=== PATIENT | female | born 1955 | race Caucasian/White ===

== ENCOUNTER 2016-08-25 17:19 | Observation (INO) | payer BC ==
[2016-08-25 17:35] VITALS: RESP 18
[2016-08-25] MEDS ORDERED: HEPARIN SODIUM,PORCINE/D5W PMX 25,000 UNIT in DEXTROSE/WATER 1 500ML.BAG IV STA (17:59)
[2016-08-25] MEDS ORDERED: ASPIRIN 81 MG CHEW PO STA (17:59)
[2016-08-25] MEDS ORDERED: HEPARIN SODIUM,PORCINE 5,000 UNIT/ML 1 ML VIAL IV STA (17:59)
[2016-08-25] MEDS ORDERED: NITROGLYCERIN OINT 1 INCH/GM PACKET TOPICAL STA (17:59)
[2016-08-25 18:26] LABS: Basophils % (A) 0 %; Eosinophils # (A) 0.1 k/uL (0-0.7); Eosinophils % (A) 1 %; HCT 41.6 % (34.0-46.0); HDW 2.48; Luc # (Auto) 0.24; Luc % (Auto) 3; Lymphocytes # (A) 2.8 k/uL (1.0-4.8); Lymphocytes % (A) 39 %; MCH 31.9 pg (25.0-35.0); MCHC 33.7 g/dL (31.0-37.0); MCV 94.6 fL (80.0-100.0); Mean Platelet Volume 6.8; Monocytes # (A) 0.4 k/uL (0-1.0); Monocytes % (A) 5 %; Neutrophils # (A) 3.6 k/uL (1.3-7.7); Neutrophils % (A) 51 %; RDW 12.7 % (11.5-15.5); WBC 7.1 k/uL (3.8-10.6); WBC (Perox) 7.11
--- NOTE | 2016-08-25 18:34 | ED ---
Chest Pain HPI - General Chief Complaint: Chest Pain Stated Complaint: SOB Time Seen by Provider: 08/25/16 17:52 Source: patient, RN/MD, RN notes reviewed Mode of arrival: ambulatory Limitations: no limitations - History of Present Illness Initial Comments: This is a 61-year-old female with a history of an NE in 2003 with a cardiac stent who was sent over by Dr. Bautista for evaluation. She had the onset 5 days ago shortness of breath and left-sided chest pain left arm pain. The symptoms are very consistent with angina. She currently states she has about 10/10 with left shoulder pain but it gets worse with movement. This is different than her other pain. MD Complaint: chest pain - Related Data Home Medications Medication Instructions Recorded Confirmed Aspirin [Adult Low Dose Aspirin EC] 81 mg PO DAILY 08/25/16 08/25/16 Atorvastatin [Lipitor] 20 mg PO HS 08/25/16 08/25/16 Glucosamine Sulfate 500 mg PO DAILY 08/25/16 08/25/16 Hydrochlorothiazide [Hydrodiuril] 25 mg PO DAILY 08/25/16 08/25/16 Ibuprofen [Motrin] 400 mg PO HS PRN 08/25/16 08/25/16 Levothyroxine Sodium [Synthroid] 112 mcg PO DAILY 08/25/16 08/25/16 Metoprolol Succinate [Toprol XL] 50 mg PO HS 08/25/16 08/25/16 Allergies Allergy/AdvReac Type Severity Reaction Status Date / Time Penicillins Allergy Rash/Hives Verified 08/25/16 19:09 Review of Systems ROS Statement: Those systems with pertinent positive or pertinent negative responses have been documented in the HPI. ROS Other: All systems not noted in ROS Statement are negative. EKG Findings - EKG Results: EKG: interpreted by CAMRYN, sinus rhythm (Sinus rhythm rate 77 appear of 01 90 QRS duration 96 daily since QTC of 380/4:30 moderate voltage criteria for LVH no acute ST-T wave changes.) Past Medical History Past Medical History: Cancer, Chest Pain / Angina, Hyperlipidemia, Hypertension , Myocardial Infarction ([place]), Thyroid Disorder History of Any Multi-Drug Resistant Organisms: None Reported Past Surgical History: Back Surgery, Cholecystectomy, Heart Catheterization With Stent, Hernia Repair, Hysterectomy Past Psychological History: No Psychological Hx Reported Smoking Status: Former smoker Past Alcohol Use History: Occasional Past Drug Use History: None Reported General Exam - General Exam Comments Initial Comments: This is a well up well-nourished awake alert oriented 3 female Limitations: no limitations General appearance: alert, in no apparent distress Head exam: Present: atraumatic, normocephalic, normal inspection Eye exam: Present: normal appearance, PERRL, EOMI. Absent: scleral icterus, conjunctival injection, periorbital swelling ENT exam: Present: normal exam, mucous membranes moist Neck exam: Present: normal inspection. Absent: tenderness, meningismus, lymphadenopathy Respiratory exam: Present: normal lung sounds bilaterally. Absent: respiratory distress, wheezes, rales, rhonchi, stridor Cardiovascular Exam: Present: regular rate, normal rhythm, normal heart sounds. Absent: systolic murmur, diastolic murmur, rubs, gallop, clicks GI/Abdominal exam: Present: soft, normal bowel sounds. Absent: distended, tenderness, guarding, rebound, rigid Extremities exam: Present: normal inspection, full ROM, normal capillary refill. Absent: tenderness, pedal edema, joint swelling, calf tenderness Back exam: Present: normal inspection Neurological exam: Present: alert, oriented X3, CN II-XII intact Psychiatric exam: Present: normal affect, normal mood Skin exam: Present: warm, dry, intact, normal color. Absent: rash Course Vital Signs 08/25/16 08/25/16 17:29 19:14 Temperature 98.7 F Pulse Rate 76 79 Respiratory 18 18 Rate Blood Pressure 139/68 164/85 O2 Sat by Pulse 97 99 Oximetry Chest Pain MDM - MDM Patient is feeling somewhat improved I did discuss the findings with her the x- rays and her acute findings I had discussed the case previously with Dr. Bautista and later with Dr. Owusu patient will be admitted for inpatient evaluation and cardiac cath in the a.m. The initial cardiac enzymes are negative for acute findings Disposition Clinical Impression: Unstable angina pectoris, Chest pain Disposition: ADMITTED IP TO THIS HOSP Condition: Stable
[2016-08-25 18:37] LABS: ALT 33 U/L (9-52); AST 22 U/L (14-36); Alkaline Phosphatase 87 U/L (38-126); Anion Gap 10 mmol/L; Blood Urea Nitrogen 14 mg/dL (7-17); Calcium 9.6 mg/dL (8.4-10.2); Carbon Dioxide 27 mmol/L (22-30); Chloride 105 mmol/L (98-107); Glucose 84 mg/dL (74-99); Magnesium 1.9 mg/dL (1.6-2.3); Non-African American GFR(MDRD) >60 (>60 ml/min/1.73 sqM); Potassium 4.1 mmol/L (3.5-5.1); Sodium 142 mmol/L (137-145); Total Bilirubin 0.6 mg/dL (0.2-1.3); Total Protein 7.1 g/dL (6.3-8.2)
--- NOTE | 2016-08-25 18:56 | XR ---
EXAMINATION TYPE: XR chest 2V DATE OF EXAM: 08/25/2016 6:33 PM COMPARISON: NONE HISTORY: Chest pain TECHNIQUE: Frontal and lateral views of the chest are obtained. FINDINGS: There is no heart failure nor confluent pneumonic infiltrate. There are no hilar masses. T here are chest leads. Costophrenic angles are clear. Bony thorax appears intact. IMPRESSION: No active cardiopulmonary disease.
[2016-08-25 18:58] LABS: Partial Thromboplastin Time 22.3 sec (22.0-30.0); Prothrombin Time 10.3 sec (9.0-12.0)
[2016-08-25 18:59] LABS: Creatine Kinase 55 U/L (30-135)
[2016-08-25 19:11] LABS: Creatine Kinase MB 1.7 ng/mL (0.0-2.4); Troponin I <0.012 ng/mL (0.000-0.034)
[2016-08-25] MEDS ORDERED: NITROGLYCERIN SL TABS 0.4 MG TAB SUBLINGUAL PRN ×2 (20:05→20:36)
[2016-08-25] MEDS ORDERED: ATORVASTATIN 80 MG TAB PO STA (20:36)
[2016-08-25] MEDS ORDERED: SODIUM CHLORIDE 0.9% 1,000 ML in EMPTY BAG 1 BAG IV ONE (20:36)
[2016-08-25] MEDS ORDERED: ALPRAZolam 0.25 MG TAB PO PRN (20:36)
[2016-08-25] MEDS ORDERED: ASPIRIN 325 MG TAB PO STA (20:36)
[2016-08-25] MEDS ORDERED: ALPRAZolam 0.5 MG TAB PO PRN (20:36)
[2016-08-25] MEDS ORDERED: METOPROLOL SUCCINATE (ER) 50 MG TAB.ER.24H PO SCH (21:00)
[2016-08-26 01:49] VITALS: BMI 38.9
[2016-08-26 02:19] LABS: Creatine Kinase 47 U/L (30-135)
[2016-08-26 02:32] LABS: Creatine Kinase MB 1.4 ng/mL (0.0-2.4); Troponin I <0.012 ng/mL (0.000-0.034)
[2016-08-26] MEDS: NITROGLYCERIN OINT 1 INCH/GM PACKET TOPICAL SCH ×2 (05:25→20:18)
[2016-08-26] MEDS ORDERED: ATORVASTATIN 80 MG TAB PO STA (05:28)
[2016-08-26] MEDS ORDERED: LEVOTHYROXINE 112 MCG TAB PO SCH (06:30)
[2016-08-26] MEDS ORDERED: HEPARIN SODIUM 1,000 UNIT/ML VIAL ONE ×2 (06:36→06:37)
[2016-08-26] MEDS ORDERED: fentaNYL (PF) 50 MCG/ML 2 ML AMP ONE (06:36)
[2016-08-26] MEDS ORDERED: diphenhydrAMINE 50 MG/ML 1 ML VIAL ONE (06:36)
[2016-08-26] MEDS ORDERED: VERAPAMIL 2.5 MG/ML 2 ML AMP ONE (06:37)
[2016-08-26] MEDS ORDERED: fentaNYL (PF) 50 MCG/ML 2 ML AMP IV ONE (06:42)
[2016-08-26] MEDS ORDERED: diphenhydrAMINE 50 MG/ML 1 ML VIAL IVP ONE (06:42)
[2016-08-26] MEDS ORDERED: LIDOCAINE 2% INJ 20 MG/ML SQ ONE (06:43)
[2016-08-26] MEDS ORDERED: VERAPAMIL SYRINGE (5 MG/10 ML) INTRAARTER ONE (06:44)
[2016-08-26] MEDS ORDERED: MIDAZOLAM 2 MG/2 ML VIAL ONE (06:46)
[2016-08-26] MEDS ORDERED: SODIUM CHLORIDE 0.9% 1,000 ML IV ONE (06:50)
[2016-08-26] MEDS ORDERED: HEPARIN SODIUM 1,000 UNIT/ML VIAL IV ONE (06:53)
[2016-08-26] MEDS ORDERED: IOHEXOL 350 MG/ML 100 ML BOTTLE INJ ONE (06:56)
[2016-08-26] MEDS ORDERED: RX INFO: IV CONTRAST WAS GIVEN 1 EACH MISC MISCELLANE PRN (07:10)
[2016-08-26] MEDS ORDERED: SODIUM CHLORIDE 0.9% 1,000 ML IV SCH (07:15)
[2016-08-26] MEDS ORDERED: HYDROCHLOROTHIAZIDE 25 MG TAB PO SCH (09:00)
[2016-08-26] MEDS ORDERED: ASPIRIN 325 MG TAB PO SCH (09:00)
[2016-08-26 09:04] LABS: Creatine Kinase 44 U/L (30-135)
[2016-08-26 09:14] LABS: Cholesterol 126 mg/dL (<200); HDL Cholesterol 67 mg/dL (40-60); Triglycerides 74 mg/dL (<150)
[2016-08-26 09:17] LABS: Creatine Kinase MB 1.2 ng/mL (0.0-2.4); Troponin I <0.012 ng/mL (0.000-0.034)
--- NOTE | 2016-08-26 11:07 | CC ---
DATE OF SERVICE: Mrs. Alan is a 61-year-old female with known history of coronary artery disease, hypertension, hyperlipidemia, who presented with symptoms of chest discomfort, exertional in pattern, associated with dyspnea on exertion, reminding her of the symptom she had in 2003 prior to her myocardial infarction. In view of that, recommendation was made a cardiac catheterization. The procedure as well as the risks and complications were discussed with the patient, who is in full understanding and agreement. PROCEDURE: Patient was brought to the [facility] in a fasting, semi-sedated state after introducing fentanyl and Benadryl and achieving moderate conscious sedated state. Using Xylocaine anesthesia and Seldinger technique, a 6 Somali sheath was introduced in the right radial artery. Selective right and left angiography using 5 Somali 3-1/2 Bend right Kofi catheter, multiple views of the coronary artery including radha-axial views were obtained. Following that, a 5 Somali tight pigtail catheter was introduced into the left ventricle and a 30 degree ROSS view of the left ventricle was obtained. Following that, catheter and sheaths were removed. Hemostasis was obtained with deployment of a TR band. There was immediate complication. Patient is returned to her room in stable condition. The patient received 5000 units of intravenous heparin as well as intra-arterial verapamil. FINDINGS: LEFT MAIN: This is a large-size vessel bifurcating into the left circumflex, left anterior descending artery, left main coronary artery without any obstructive disease. LEFT ANTERIOR DESCENDING ARTERY: This is a large-size vessel, giving rise to a proximal diagonal branch. The left anterior descending artery as well as its branches have no evidence of obstructive lung disease. LEFT CIRCUMFLEX: This is a nondominant vessel, giving rise to 2 to 3 obtuse marginal branch. The first 2 are large in caliber. The stented segment in the mid-left circumflex is patent, has a 20% in-stent restenosis. The rest of the vessel has no high-grade stenosis. RIGHT CORONARY ARTERY: This is a large dominant vessel, bifurcating distally to a PDA and posterolateral segment. The right coronary artery in mid segment has a 20% plaque. The rest of the vessel has no high-grade stenosis. LEFT VENTRICULOGRAM: Left ventriculogram was performed in 30 degree ROSS view and revealed normal left ventricular size and systolic function. Ejection fraction 60%. There was no significant mitral regurgitation. HEMODYNAMICS: There was no gradient across the aortic valve. The left ventricular end-diastolic pressure was 14 mmHg. CONCLUSION: 1. Mild coronary artery disease involving the left circumflex and the right coronary artery with no evidence of in-stent restenosis. 2. Normal left ventricular size and systolic function. RECOMMENDATION: In view of finding anatomy, I recommend continued medical therapy with aggressive risk modifications being initiated. Those findings and recommendations were discussed with the patient and her family. Duration of the procedure 19 minutes.
--- NOTE | 2016-08-26 11:10 | LTR ---
August 26, 2016 RE: Marisol Alan Dear Dr. Weathers; I had the pleasure to perform cardiac catheterization on Mrs. Alan at [facility] on August 26, 2016 and a full copy of the procedure note will be forwarded to you. In brief, she was found to have mild obstructive disease with no evidence of high-grade stenosis and no significant in-stent restenosis and based on this finding, I have recommended continue medical therapy with aggressive risk modifications being initiated. Thank you again for allowing me to participate in this patient's care. Please feel free to call for any questions. Sincerely yours, ORI MASCORRO MD
[2016-08-26 12:18] VITALS: TEMP 97.9
[2016-08-26 12:47] VITALS: BP 139/63; PULSE 79
--- NOTE | 2016-08-26 15:40 | P.HPIM ---
History of Present Illness H&P Date: 08/25/16 Chief Complaint: Chest pain and angina, CAD, hypertension, hyperlipidemia, hypothyroidism 61-year-old female one of Dr. Callahan's patient with past medical history of CAD post [place] and angioplasty with stent back in 2003, history of hypertension, hyperlipidemia and hypothyroidism who had mild hyperglycemia apparently developed to have for the last 5 days recurrent chest pain with left- sided arm numbness along with increased shortness of breath with minimum exertion associated with mild nausea mild lightheadedness with no syncopal episode. Patient was in to see Dr. Bautista with above symptoms ended up being referred to demurs department and hospitalized after started on heparin drip for unstable angina will be going for heart catheter in the morning. Review of Systems Constitutional: Reports fatigue, Reports malaise, Reports poor appetite, Reports weakness, Denies as per HPI, Denies anorexia, Denies chills, Denies chronic headaches, Denies chronic pain, Denies daytime sleepiness, Denies fever , Denies lethargy, Denies night sweats, Denies sweats, Denies weight gain, Denies weight loss Eyes: bilateral as per HPI Ears: bilateral: decreased hearing Ears, nose, mouth and throat: Reports ant. neck pain, Reports nasal congestion, Reports sinus pain, Reports sinus pressure, Denies as per HPI, Denies bleeding gums, Denies dental pain, Denies dysphagia, Denies epistaxis, Denies headache, Denies hoarseness, Denies mouth pain, Denies nasal discharge, Denies neck fullness/pressure, Denies neck lump, Denies nose pain, Denies odynophagia, Denies post-nasal drip, Denies swelling in mouth, Denies swelling in throat, Denies sore throat, Denies vertigo, Denies voice changes Cardiovascular: Reports chest pain, Reports claudication, Reports decreased exercise tolerance, Reports dyspnea on exertion, Reports edema, Reports high blood pressure, Reports irregular heart beat, Reports lightheadedness, Reports palpitations, Reports paroxysmal nocturnal dyspnea, Reports rapid heart beat, Reports shortness of breath, Denies as per HPI, Denies leg edema, Denies orthopnea, Denies phlebitis, Denies syncope Respiratory: Reports congestion, Reports cough, Reports dyspnea, Denies as per HPI, Denies cough with sputum, Denies excessive sputum, Denies hemoptysis, Denies home oxygen, Denies pain, Denies pain on inspiration, Denies pleurisy, Denies respiratory infections, Denies sleep apnea, Denies snoring, Denies wheezing Gastrointestinal: Reports abdominal pain, Reports bloating, Reports dyspepsia, Reports indigestion, Reports nausea, Denies as per HPI, Denies belching, Denies BRBPR, Denies change in bowel habits, Denies coffee ground emesis, Denies constipation, Denies diarrhea, Denies early satiety, Denies excessive gas, Denies heartburn, Denies hematemesis, Denies hematochezia, Denies jaundice, Denies lactose intolerance, Denies loss of appetite, Denies melena, Denies vomiting Genitourinary: Denies as per HPI, Denies abnormal vaginal bleeding, Denies decreased libido, Denies difficulty conceiving, Denies difficulty voiding, Denies dysmenorrhea, Denies dyspareunia, Denies dysuria, Denies flank pain, Denies genital sores, Denies hematuria, Denies hot flashes, Denies incomplete emptying, Denies kidney stones, Denies menorrhagia, Denies mixed incontinence, Denies nocturia, Denies pelvic pain, Denies post void dribbling, Denies , Denies prolapse symptoms, Denies stress incontinence, Denies urge incontinence , Denies urgency, Denies urinary frequency, Denies vaginal discharge, Denies vaginal dryness, Denies vaginal itching, Denies vaginal odor Musculoskeletal: Reports muscle cramps, Denies as per HPI, Denies arm numbness/ tingling, Denies atrophy, Denies fractures, Denies frequent falls, Denies gait dysfunction, Denies hot joints, Denies leg numbness/tingling, Denies limitation of motion, Denies loss of height, Denies low back pain, Denies morning stiffness , Denies muscle weakness, Denies myalgias, Denies neck pain, Denies neck stiffness, Denies prior amputations, Denies redness of joints, Denies shooting arm pain, Denies shooting leg pain Integumentary: Reports rash, Reports sores, Denies as per HPI, Denies acne, Denies boils, Denies brittle nails, Denies change in hair/nails, Denies color changes, Denies darkening of skin, Denies depigmentation, Denies dryness, Denies foot/leg ulcers, Denies growths, Denies hirsutism, Denies lesions, Denies onychomycosis, Denies pruritus, Denies striae, Denies unusual bruising, Denies wounds Neurological: Denies as per HPI, Denies aphasia, Denies ataxia, Denies balance difficulties, Denies burning pain, Denies change in mentation, Denies change in smell/taste, Denies change in speech, Denies confusion, Denies convulsions, Denies double vision, Denies gait dysfunction, Denies head injury, Denies headaches, Denies hearing difficulties, Denies lack of coordination, Denies loss of vision, Denies memory loss, Denies migraines, Denies motor disturbance, Denies numbness, Denies paralysis, Denies paresthesias, Denies seizures, Denies sensory deficit, Denies spasticity, Denies syncope, Denies tic, Denies tingling , Denies transient paralysis, Denies tremors, Denies vertigo, Denies weakness, Denies visual changes Psychiatric: Reports anhedonia, Denies as per HPI, Denies anxiety, Denies anxiety attacks, Denies change in appetite, Denies change in libido, Denies change in sleep habits, Denies confusion, Denies depression, Denies difficulty concentrating, Denies disorientation, Denies hallucinations, Denies hopelessness , Denies hypersomnia, Denies insomnia, Denies irritability, Denies memory loss, Denies mood swings, Denies paranoia, Denies sadness/tearfulness, Denies sleep disturbances, Denies suicidal ideation Endocrine: Reports fatigue, Denies as per HPI, Denies cold intolerance, Denies deepening of the voice, Denies excessive sweating, Denies excessive thirst, Denies flushing, Denies heat intolerance, Denies high blood sugars, Denies increase in ring/shoe/hat size, Denies low blood sugars, Denies nocturia, Denies palpitations, Denies polydipsia, Denies polyphagia, Denies polyuria, Denies proptosis, Denies recent glucocorticoid use, Denies thyroid mass, Denies weight change Hematologic/Lymphatic: Reports easy bruising, Denies as per HPI, Denies easy bleeding, Denies lymphadenopathy, Denies lymphedema, Denies thrombophilia Allergic/Immunologic: Reports allergic rhinitis, Denies as per HPI, Denies anaphylaxis, Denies angioedema, Denies gluten intolerance, Denies persistent infections, Denies seasonal allergies, Denies urticaria, Denies wheezing Past Medical History Past Medical History: Cancer, Chest Pain / Angina, Hyperlipidemia, Hypertension , Myocardial Infarction ([place]), Thyroid Disorder Additional Past Medical History / Comment(s): renal stones Last Myocardial Infarction Date:: 2003 History of Any Multi-Drug Resistant Organisms: None Reported Past Surgical History: Back Surgery, Cholecystectomy, Heart Catheterization With Stent, Hernia Repair, Hysterectomy, Tonsillectomy Past Anesthesia/Blood Transfusion Reactions: No Reported Reaction Date of Last Stent Placement:: 2003 Past Psychological History: No Psychological Hx Reported Smoking Status: Former smoker Past Alcohol Use History: Occasional Past Drug Use History: None Reported Medications and Allergies Home Medications Medication Instructions Recorded Confirmed Type Aspirin [Adult Low Dose Aspirin EC] 81 mg PO DAILY 08/25/16 08/25/16 History Atorvastatin [Lipitor] 20 mg PO HS 08/25/16 08/25/16 History Glucosamine Sulfate 500 mg PO DAILY 08/25/16 08/25/16 History Hydrochlorothiazide [Hydrodiuril] 25 mg PO DAILY 08/25/16 08/25/16 History Ibuprofen [Motrin] 400 mg PO HS PRN 08/25/16 08/25/16 History Levothyroxine Sodium [Synthroid] 112 mcg PO DAILY 08/25/16 08/25/16 History Metoprolol Succinate [Toprol XL] 50 mg PO HS 08/25/16 08/25/16 History Allergies Allergy/AdvReac Type Severity Reaction Status Date / Time Penicillins Allergy Rash/Hives Verified 08/25/16 19:09 Physical Exam Vitals: Vital Signs Temp Pulse Pulse Pulse Pulse Resp BP 08/26/16 12:46 79 08/26/16 12:00 97.9 F 74 18 08/26/16 10:45 83 08/26/16 09:45 74 08/26/16 09:15 78 08/26/16 08:45 77 08/26/16 08:00 78 08/26/16 07:45 75 08/26/16 07:30 98.2 F 74 08/26/16 03:30 18 08/26/16 03:00 71 18 08/26/16 01:54 98.2 F 71 18 08/26/16 00:41 96.9 F L 82 18 136/60 08/26/16 00:33 96.9 F L 82 18 136/60 08/25/16 21:43 98.1 F 85 18 168/78 08/25/16 20:09 86 18 176/77 BP BP Pulse Ox 08/26/16 12:46 139/63 95 08/26/16 12:00 128/57 96 08/26/16 10:45 132/67 95 08/26/16 09:45 140/67 95 08/26/16 09:15 135/61 93 L 08/26/16 08:45 142/64 94 L 08/26/16 08:00 138/65 93 L 08/26/16 07:45 139/65 92 L 08/26/16 07:30 140/64 94 L 08/26/16 03:30 08/26/16 03:00 08/26/16 01:54 142/61 96 08/26/16 00:41 99 08/26/16 00:33 99 08/25/16 21:43 95 08/25/16 20:09 98 Intake and Output 08/26/16 08/26/16 08/26/16 06:59 14:59 22:59 Intake Total 150 240 Balance 150 240 Intake: IV 150 Oral 240 Other: # Voids 1 1 - Constitutional General appearance: no average body habitus, cooperative, no disheveled, no mild distress, no morbidly obese, no acute distress, no obese, no severe distress, no thin - EENT Eyes: no abnormal pupil, no anicteric sclerae, no disc margins sharp, no edentulous, no EOMI, no PERRLA, no fundus normal, no photophobia, no dentition normal, no poor dentition, no ptosis, no scleral icterus, normal appearance ENT: no hard of hearing, no hearing grossly normal, no NA/AT, normal oropharynx , no other, no thrush, no tonsillar exudates, no tonsillar swelling Ears: bilateral: normal - Neck Neck: no lymphadenopathy, normal ROM, no other, no rigidity, no stridor, no thyromegaly Carotids: bilateral: upstroke normal Thyroid: bilateral: normal size - Respiratory Respiratory: bilateral: CTA, diminished - Cardiovascular Rhythm: regular Heart sounds: normal: S1, S2 Abnormal Heart Sounds: systolic murmur, S3 Gallop - Gastrointestinal General gastrointestinal: no absent bowel sounds, no decreased bowel sounds, no distended, no hepatomegaly, no hyperactive bowel sounds, no normal bowel sounds , no organomegaly, no rigid, no scaphoid, soft, no splenomegaly, no tenderness, no umbilical hernia, no ventral hernia - Integumentary Integumentary: no calor, no cellulitis, no cyanotic, no decreased turgor, no flushed, no jaundiced, normal, no normal turgor, pale, no rash, no ulcer - Neurologic Neurologic: CNII-XII intact - Musculoskeletal Musculoskeletal: gait normal, generalized weakness, strength equal bilaterally, no right sided weakness, no left sided weakness - Psychiatric Psychiatric: A&O x's 3, appropriate affect, no intact judgment & insight Results CBC & Chem 7: 08/25/16 18:10 08/25/16 18:10 Labs: Abnormal Lab Results - Last 24 Hours (Table) 08/26/16 08/26/16 Range/Units 01:30 08:17 APTT 34.3 H (22.0-30.0) sec HDL Cholesterol 67 H (40-60) mg/dL Thrombosis Risk Factor Assmnt - DVT/VTE Prophylaxis DVT/VTE Prophylaxis: Pharmacologic Prophylaxis ordered, Mechanical Prophylaxis ordered - Choose All That Apply Each Risk Factor Represents 2 Points: Age 61-74 years Thrombosis Risk Factor Assessment Total Risk Factor Score: 2 Thrombosis Risk Factor Assessment Level: Low Risk Assessment and Plan Plan: 1 unstable angina: Patient was admitted started on heparin drip and nitro cardiology be seen patient will be scheduled for heart catheter tomorrow morning. 2 CAD: Post angioplasty and stent placement back in 2003, patient seen cardiology regular basis last heart catheter apparently not show any major abnormality from over 2 years ago. 3 hypertension: Remain well controlled on metoprolol XL 50 mg a day. 4 hyperlipidemia: On atorvastatin 20 mg daily. 5 hypothyroidism: Patient is doing well on levothyroxine 112 g daily. 6 chronic history of smoking: She quit 18 months ago patient had no desire of smoking does not 1 a be on any nicotine patch or any medication to help to quit smoking. 7 GERD: Patient can be on Pepcid 20 mg daily. 8 DVT prophylaxis: Patient will be on heparin drip for now. CODE STATUS: Full code. Expectation from this admission: Patient be in the hospital for 1-2 nights.
--- NOTE | 2016-08-26 15:44 | P.DS ---
Providers Date of admission: 08/25/16 20:05 Attending physician: Ryan Owusu [facility] Chief Complaint: Chest pain and angina, CAD, hypertension, hyperlipidemia, hypothyroidism 61-year-old female one of Dr. Callahan's patient with past medical history of CAD post [place] and angioplasty with stent back in 2003, history of hypertension, hyperlipidemia and hypothyroidism who had mild hyperglycemia apparently developed to have for the last 5 days recurrent chest pain with left- sided arm numbness along with increased shortness of breath with minimum exertion associated with mild nausea mild lightheadedness with no syncopal episode. Patient was in to see Dr. Bautista with above symptoms ended up being referred to demurs department and hospitalized after started on heparin drip for unstable angina will be going for heart catheter in the morning. Assessment and Plan Plan: 1 unstable angina: Patient was admitted started on heparin drip and nitro cardiology be seen patient will be scheduled for heart catheter tomorrow morning. 2 CAD: Post angioplasty and stent placement back in 2003, patient seen cardiology regular basis last heart catheter apparently not show any major abnormality from over 2 years ago. 3 hypertension: Remain well controlled on metoprolol XL 50 mg a day. 4 hyperlipidemia: On atorvastatin 20 mg daily. 5 hypothyroidism: Patient is doing well on levothyroxine 112 g daily. 6 chronic history of smoking: She quit 18 months ago patient had no desire of smoking does not 1 a be on any nicotine patch or any medication to help to quit smoking. 7 GERD: Patient can be on Pepcid 20 mg daily. 8 DVT prophylaxis: Patient will be on heparin drip for now. Hospital course: Patient was hospitalized overnight was on heparin drip and nitro through the night did not have any further chest pain or angina. Patient ended up going for heart catheter with Dr. Bautista finding was consistent with mild coronary disease involving the left circumflex and right coronary artery with no evidence of and stenosis. Normal left ventricular size and systolic function. Based on this finding continue risk modification and medical management. Patient was very stable to discharge home she would be follow with Dr. Bautista on and Dr. Callahan he has an outpatient in the next few days. Patient Condition at Discharge: Stable Plan - Discharge Summary Discharge Medication List Aspirin [Adult Low Dose Aspirin EC] 81 mg PO DAILY 08/25/16 [History] Atorvastatin [Lipitor] 20 mg PO HS 08/25/16 [History] Glucosamine Sulfate 500 mg PO DAILY 08/25/16 [History] Hydrochlorothiazide [Hydrodiuril] 25 mg PO DAILY 08/25/16 [History] Ibuprofen [Motrin] 400 mg PO HS PRN 08/25/16 [History] Levothyroxine Sodium [Synthroid] 112 mcg PO DAILY 08/25/16 [History] Metoprolol Succinate [Toprol XL] 50 mg PO HS 08/25/16 [History] Aspirin 325 mg PO DAILY tab 08/26/16 [Rx] Nitroglycerin Sl Tabs [Nitrostat] 0.4 mg SUBLINGUAL Q5M PRN #0 tab 08/26/16 [Rx] Follow up Appointment(s)/Referral(s): Carlos Bautista MD [STAFF PHYSICIAN] - 09/01/16 8:30 am Kathleen Jovel MD [Primary Care Provider] - 1-2 days
[2016-08-26] MEDS ORDERED: ATORVASTATIN 20 MG TAB PO SCH (21:00)
== END 2016-08-26 16:41 | disposition home or self-care (01) ==
LOC: EC 17:19 → 3OBS 20:05
PROVIDERS: ADMIT Internal Medicine Geriatric Medicine; ATTEND Internal Medicine Geriatric Medicine
DX: I25.110 Atherosclerotic heart disease of native coronary artery with unstable angina pectoris (principal); I25.2 Old myocardial infarction; Z95.5 Presence of coronary angioplasty implant and graft; I10 Essential (primary) hypertension; E78.5 Hyperlipidemia, unspecified; Z87.891 Personal history of nicotine dependence; E03.9 Hypothyroidism, unspecified; Z79.82 Long term (current) use of aspirin; K21.9 Gastro-esophageal reflux disease without esophagitis; Z79.899 Other long term (current) drug therapy; Z79.84 Long term (current) use of oral hypoglycemic drugs; Z88.0 Allergy status to penicillin; I25.10 Atherosclerotic heart disease of native coronary artery without angina pectoris; Z87.442 Personal history of urinary calculi; Z85.9 Personal history of malignant neoplasm, unspecified
CPT/HCPCS: 96365; 96366 ×5; 96376; 99285; 36415; 93005; 93458; 80061; 80053; 82550 ×2; 82553 ×2; 83735; 84484 ×2; 85025; 85610; 85730 ×2; 71020; G0378 ×2; C1894; C1769; J2001; J1200; J1644 ×3; Q9967; J3010

== ENCOUNTER → 2016-10-12 | Outpatient (CLI) | payer BC | END | disposition home or self-care (01) | LOC: MMGSC 09:39 | PROVIDERS: ATTEND Internal Medicine Endocrinology, Diabetes & Metabolism | DX: E78.2 Mixed hyperlipidemia (principal); E03.9 Hypothyroidism, unspecified; I10 Essential (primary) hypertension | CPT/HCPCS: 80061; 82306; 83036; 84439; 84443 ==

== ENCOUNTER → 2016-10-12 | Outpatient (CLI) | payer BC ==
[2016-10-12 19:49] LABS: ALT 30 U/L (9-52); AST 19 U/L (14-36); Alkaline Phosphatase 93 U/L (38-126); Anion Gap 10 mmol/L; Blood Urea Nitrogen 26 mg/dL (7-17); Calcium 9.4 mg/dL (8.4-10.2); Carbon Dioxide 26 mmol/L (22-30); Chloride 106 mmol/L (98-107); Glucose 119 mg/dL (74-99); Non-African American GFR(MDRD) >60 (>60 ml/min/1.73 sqM); Potassium 4.2 mmol/L (3.5-5.1); Sodium 142 mmol/L (137-145); Total Bilirubin 0.5 mg/dL (0.2-1.3); Total Protein 6.6 g/dL (6.3-8.2)
== END | disposition home or self-care (01) ==
LOC: MMGSC 09:36
PROVIDERS: ATTEND Family Medicine
DX: E78.5 Hyperlipidemia, unspecified (principal); E03.9 Hypothyroidism, unspecified; I25.10 Atherosclerotic heart disease of native coronary artery without angina pectoris
CPT/HCPCS: 36415; 80053

== ENCOUNTER → 2017-09-26 | Outpatient (CLI) | payer BC ==
[2017-09-26 10:57] LABS: ALT 32 U/L (9-52); AST 18 U/L (14-36); Cholesterol 122 mg/dL (<200); HDL Cholesterol 61 mg/dL (40-60); LDL Cholesterol,Calculated 40 mg/dL (0-99); Triglycerides 104 mg/dL (<150)
== END | disposition home or self-care (01) ==
LOC: LABWHC1 10:19
PROVIDERS: ATTEND Internal Medicine Interventional Cardiology
DX: E78.2 Mixed hyperlipidemia (principal)
CPT/HCPCS: 36415; 80061; 84450; 84460

== ENCOUNTER → 2018-02-06 | Outpatient (CLI) | payer BC ==
--- NOTE | 2018-02-07 08:52 | MM ---
Reason for exam: screening (asymptomatic). Last mammogram was performed 2 years and 8 months ago. History: Patient is postmenopausal and history of other cancer. Family history of breast cancer in paternal aunt. Physical Findings: A clinical breast exam by your physician is recommended on an annual basis and results should be correlated with mammographic findings. MG 3D Screening Mammo W/Cad Bilateral CC and MLO view(s) were taken. Prior study comparison: June 03, 2015, bilateral MG 3d screening mammo w/cad. March 27, 2009, mammogram, performed at [facility]. There are scattered fibroglandular densities. Benign appearing bilateral calcifications. No suspicious abnormality. No significant changes when compared with prior studies. ASSESSMENT: Benign, BI-RAD 2 RECOMMENDATION: Routine screening mammogram of both breasts in 1 year.
== END | disposition home or self-care (01) ==
LOC: RADMAMWWP 10:30
PROVIDERS: ATTEND Family Medicine
DX: Z12.31 Encounter for screening mammogram for malignant neoplasm of breast (principal)
CPT/HCPCS: 77063; 77067